=== PATIENT | female | born 1950 | race Caucasian/White ===

== ENCOUNTER 2021-02-27 12:57 | Outpatient (RCR) | payer MEDICARE, SELFPAY ==
--- NOTE | 2021-02-27 14:09 | PTOPEVAL ---
Thank you for referring Malgorzata Arroyo to [facility].? The patient is scheduled to be seen for therapy? ____x/week for ___ weeks. Please review, sign, date and return this plan of care ALEA. I agree with and certify that the following plan of care is medically necessary. Referring Physician Date Admitting Provider: Attending Provider: Erwin Vigil Referring Provider: PACO Outpatient Evaluation Start: 02/27/21 13:17 Freq: Status: Active Protocol: Document 02/27/21 13:20 [facility] (Rec: 02/27/21 14:08 [facility] [email or web address]) Therapy Assessment Status Assessment Status Assessment Status Evaluation Evaluation Information Problem Diagnosis L hip pain Onset 02/17/21 Additional Evaluation Detail LEFS = 53% functionally declined Subjective Information patient reports she is coming Query Text:As Reported By Patient/ to therapy for pain in the L Family hip. she reports she is complicated by a history of lower back pain and a pinched nerve on the L side. she reports she has recetnly had an injection to the lower back which has helped the pain in the L hip as well. she reports the L hip pain is in the buttock region and ther outside of her hip. she reports she has worst hip pain with sitting and laying on her back. she reports difficulty sleeping due to pain. she reports she also has increased pain wtih prolonged standing. she reports she has had pain in the hip for several months. she reports she has a history of pain/ soreness down the L LE. she reports this is goine since her injection. Diagnostic Tests MRI For This Problem Yes: hip and lower back Prior Level of Function Comments Additional Prior Level of Function patient reports she is retired Comments . 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 she reports she likes to do krafts and valdez at home which involves a large amount of sitting at home. Pain Assessment Timing of Pain Assessment Timing of Pain Assessment Asses
--- NOTE | 2021-03-23 14:07 | PTOPEVAL ---
Thank you for referring Malgorzata Arroyo to [facility].? The patient is scheduled to be seen for therapy? ____x/week for ___ weeks. Please review, sign, date and return this plan of care ALEA. I agree with and certify that the following plan of care is medically necessary. Referring Physician Date Admitting Provider: Attending Provider: Erwin Vigil Referring Provider: PACO Outpatient Evaluation Start: 02/27/21 13:17 Freq: Status: Active Protocol: Document 03/23/21 13:19 [facility] (Rec: 03/23/21 14:05 [facility] [id number]) Therapy Assessment Status Assessment Status Assessment Status Progress Evaluation Information Problem Diagnosis L hip pain Onset 02/17/21 Subjective Information Patient reports that she is Query Text:As Reported By Patient/ feeling quite a bit better Family because she is able to sleep on the L side and it is not as sore to touch. The patient states she still has difficulty with sitting for a prolonged period of time, but believes that is coming from her back. The patient states she is still unable to sleep through the night and cannot sit for too long. Pain Assessment Timing of Pain Assessment Timing of Pain Assessment Assessment Pain Scale Pain Scale Used Numeric (1 - 10) Self Report Pain Assessment Bilateral Knee(s) Reported Pain Level 4 Greatest Pain Intensity 6 Lower Back Reported Pain Level 4 Greatest Pain Intensity 6 Left Hip(s) Reported Pain Level 4 Greatest Pain Intensity 6 Pain Score Pain Score 4,4,4: Self Report Interventions Used Interventions Used By Clinicians Activity or ADL's,Exercise Cervical and Lumbar ROM Lumbar ROM Lumbar Flexion Active Ankle Query Text:Hands to: Lumbar Extension (0-40) 15 Query Text:Active in Degrees Lumbar Lateral Flexion Right (0-40) 35 Query Text:Active in Degrees Lumbar Lateral Flexion Left (0-40) 35 Query Text:Active in Degrees Cervical and Lumbar Muscle Testing Lumbar Strength Upper Abdominal Strength 3-Fair- Lower Abdominal Strength 3-Fair- Lower Extremity Muscle Strength Testing Hip Strength Left Hip Flexion Strength 4+ Good + Hip Abduction Strength 3+ Fair + Right Hip Flexion Strength 4+ Good + Hip Abduction Strength 3+ Fair + Knee Strength Bilateral Knee Flexion Strength 5 Normal
== END 2021-03-31 15:00 | disposition home or self-care (01) ==
LOC: CHSPT 12:57
PROVIDERS: PCP Family Medicine
DX: M25.552 Pain in left hip (principal)
CPT/HCPCS: 97014; 97110; 97140; 97161; G0283

== ENCOUNTER 2024-05-27 13:37 | Outpatient (RCR) | payer MEDICARE, SELFPAY ==
--- NOTE | 2024-05-27 15:50 | OPREHPOC ---
Outpatient Therapy Plan of Care This is a Multidisciplinary Plan of Care that may contain components documented by all disciplines (PT, OT, and ST.) PT Problem 1 PT Problem #1 Knowledge Deficit PT Goal 1 Goal / Goal Update The patient will be independent in a home exercise program. Target Visit 4 PT Problem 2 PT Problem #2 Pain PT Goal 1 Goal / Goal Update The patient will report no greater than 3/10 left hip pain with household and community ambulation. Target Visit 12 PT Problem 3 PT Problem #3 Impaired Functional Mobility PT Goal 1 Goal / Goal Update 1. The patient will demonstrate 50% or less self perceived disability per the LEFS. 2. The patient will be able to ambulate at least 1 ,000 feet during the 6 minute walk test to improve community ambulation. Target Visit 12 PT Problem 4 PT Problem #4 Impaired Strength PT Goal 1 Goal / Goal Update 1. The patient will demonstrate at least 4/5 strength in the left hip and knee to improve gait and functional mobility. 2. The patient will demonstrate the ability to transfer sit to stand without UE support indicating improved functional strength. Target Visit 12 PT Problem 5 PT Problem #5 Impaired Balance PT Goal 1 Goal / Goal Update The patient will demonstrate 25/28 on the Tinetti Balance Scale indicating a low fall risk. Target Visit 12
--- NOTE | 2024-05-27 15:50 | PTOPEVAL1 ---
Assessment and note entered by Kami Rivera, PT Evaluation Information Assessment Status Evaluation Diagnosis s/p L HERMELINDA ICD-10 Condition Codes (PT) Pain in left hip M25.552,Encounter for other orthopedic aftercare Z47.89,Aftercare following joint replacement surgery Z47.1 Other ICD-10 Condition Codes ( Z96.642 PT) Onset 05/19/24 Subjective Information Malgorzata Arroyo reports she had her left hip replaced on 05/19/24 due to osteoarthritis. She had the surgery as outpatient and did not have home health. She has been using a wheeled walker to get around. She lives in a ranch style home that is totally handicap accessible. She has a ramp as well and is not having trouble getting in and out of her home. She has been having intermittent pain but keeps it under control with medication. She is noting increased pain with getting up on her feet and getting in and out her bed and chairs. Reported Pain Level Pain Score 6: Self Report Assessment PT Clinical Summary Malgorzata Arroyo presents 8 days s/p L HERMELINDA with an anterior approach. She is reporting moderate pain in the anterior hip that increases with bed mobility, sit to stand transfers, and ambulation. She objectively demonstrates decreased left knee and hip AROM, decreased left knee and hip strength , decreased balance, impaired gait, and decreased endurance. She will benefit from skilled PT to address these limitations. Plan of Care Interventions Electrical Stimulation,Gait Training,Hot Pack/Cold Pack,Manual Therapy,Neuro Re-education,Patient/ Caregiver Education,Therapeutic Activities, Therapeutic Exercise PT Services Indicated Yes Treatment Frequency and 2 times a week for 12 visits Duration These treatments will address the objective and functional deficits as defined above. The patient will be advanced safely and appropriately in order for the patient to progress towards his/her prior level of function. Additional exercises will be introduced and as well as a comprehensive home exercise program upon discharge, if needed, ?to ensure carryover of functional gains achieved in the clinic. This treatment plan has been reviewed and agreement upon by the patient.
--- NOTE | 2024-08-25 15:36 | PTOPDC ---
Assessment and note entered by Kami Rivera, PT Evaluation Information Assessment Status Discharge - Pt Not Present Diagnosis s/p L HERMELINDA ICD-10 Condition Codes (PT) Pain in left hip M25.552,Encounter for other orthopedic aftercare Z47.89,Aftercare following joint replacement surgery Z47.1 Other ICD-10 Condition Codes ( Z96.642 PT) Onset 05/19/24 Subjective Information Pt not present for discharge assessment so no subjective info available. Assessment PT Clinical Summary Malgorzata Arroyo completed 7 skilled PT visits following a left HERMELINDA. She did not show for any additional appointments and will be discharged. Plan of Care PT Services Indicated No
== END 2024-06-18 20:00 | disposition home or self-care (01) ==
LOC: CHSPT 13:37
DX: Z47.1 Aftercare following joint replacement surgery (principal); M25.552 Pain in left hip; Z96.642 Presence of left artificial hip joint
CPT/HCPCS: 97110; 97161; 97530